=== PATIENT | female | born 1960 | race Caucasian/White ===

== ENCOUNTER 2017-02-08 20:19 | Emergency (ER) | payer OTHER ==
[2017-02-08 20:35] VITALS: BP 154/90; PULSE 90; TEMP 97.7; BMI 23.3
--- NOTE | 2017-02-08 20:48 | PDOC ---
History of Present Illness - General History Source: Patient Exam Limitations: No Limitations - History of Present Illness Initial Comments: 02/08/17 20:49 The patient is a 56 year old female, with a significant past medical history of , who presents to the emergency department with cough, chest congestion, and difficulty breathing, since today. The patient reports having chest congestion today casing the patient to have difficulty breathing. She also notes having one episode of vomiting, with alleviation of her symptoms. She notes having a partial nebulizer treatment with some alleviation of her symptoms. She also arrives with chief complaints of migraine headaches that has been intermittent for the past week .She denies recent fevers, chills, or dizziness. She denies recent diarrhea or constipation. Allergies: NKA Past surgical history: None reported. Social history: Nonsmoker. Denies EtOH use and recreational drug use. <Leroy Brown - Last Filed: 02/08/17 20:49> <Ivette Russell - Last Filed: 02/08/17 21:38> - General Chief Complaint: Respiratory Stated Complaint: DRY COUGH, HEADACHE Time Seen by Provider: 02/08/17 20:22 Past History <Leroy Brown - Last Filed: 02/08/17 20:49> - Past Medical History Other medical history: POLYCYTHEMIA - Psycho/Social/Smoking Cessation Hx Anxiety: No Suicidal Ideation: No Smoking History: Never smoked Have you smoked in the past 12 months: No Information on smoking cessation initiated: No Hx Alcohol Use: No Drug/Substance Use Hx: No Substance Use Type: None <Ivette Russell - Last Filed: 02/08/17 21:38> - Past Medical History Allergies/Adverse Reactions: Allergies Allergy/AdvReac Type Severity Reaction Status Date / Time No Known Allergies Allergy Verified 02/08/17 20:20 Home Medications: Ambulatory Orders Azithromycin [Zithromax 250mg Tablets -] 250 mg PO UTDICT #6 tab 02/08/17 Ruxolitinib Phosphate [Jakafi] 10 mg PO BID 02/08/17 Review of Systems - Review of Systems Able to Perform ROS?: Yes Comments:: 02/08/17 20:49 GENERAL/CONSTITUTIONAL: No fever or chills. No weakness. HEAD, EYES, EARS, NOSE AND THROAT: No change in vision. No ear pain or discharge. No sore throat. CARDIOVASCULAR: +SOB RESPIRATORY: +cough No wheezing, or hemoptysis. GASTROINTESTINAL:+vomiting. No diarrhea or constipation. GENITOURINARY: No dysuria, frequency, or change in urination. MUSCULOSKELETAL: No joint or muscle swelling or pain. No neck or back pain. SKIN: No rash NEUROLOGIC: +headache. No vertigo, loss of consciousness, or change in strength/ sensation. ENDOCRINE: No increased thirst. No abnormal weight change. HEMATOLOGIC/LYMPHATIC: No anemia, easy bleeding, or history of blood clots. ALLERGIC/IMMUNOLOGIC: No hives or skin allergy. <Leroy Brown - Last Filed: 02/08/17 20:49> *Physical Exam - Vital Signs Last Vital Signs Temp Pulse Resp BP Pulse Ox 97.7 F 90 18 154/90 100 02/08/17 20:24 02/08/17 20:24 02/08/17 20:24 02/08/17 20:24 02/08/17 20:24 - Physical Exam Comments: 02/08/17 20:50 GENERAL: Awake, alert, and fully oriented, in no acute distress HEAD: No signs of trauma EYES: PERRLA, EOMI, sclera anicteric, conjunctiva clear ENT: TMs clear effusions bilaterally. Nose boggy turbinates bilaterally. oropharynx clear without exudates. Moist mucosa NECK: Normal ROM, supple, no lymphadenopathy, JVD, or masses LUNGS: Breath sounds equal, clear to auscultation bilaterally. No wheezes, and no crackles HEART: Regular rate and rhythm, normal S1 and S2, no murmurs, rubs or gallops ABDOMEN: Soft, nontender, normoactive bowel sounds. No guarding, no rebound. No masses EXTREMITIES: Normal range of motion, no edema. No clubbing or cyanosis. No cords, erythema, or tenderness NEUROLOGICAL: Cranial nerves II through XII grossly intact. Normal speech, normal gait SKIN: Warm, Dry, normal turgor, no rashes or lesions noted. <Leroy Brown - Last Filed: 02/08/17 20:49> - Vital Signs Last Vital Signs Temp Pulse Resp BP Pulse Ox 97.7 F 90 18 154/90 100 02/08/17 20:24 02/08/17 20:24 02/08/17 20:24 02/08/17 20:24 02/08/17 20:24 <Ivette Russell - Last Filed: 02/08/17 21:38> Medical Decision Making - Medical Decision Making Based on exam findings, I suspect there is an allergic component causing postnasal drip and mucous plug. She had an episode of coughing after using a neb treatment for 2 minutes. Lungs are clear now, no cough. I recommended treating for allergies, as this seems to be at the root. If needed, she will use neb treatments- I counseled her that it is normal to cough during treatments as it opens up the airways, but that she should finish the entire treatment in the future. Will treat with nasal steroids and OTC Shahrzad. If the cough worsens or becomes productive, will start an antibiotic, although she does not need it at this time. She and family are ok with this plan. <Ivette Russell - Last Filed: 02/08/17 21:38> *DC/Admit/Observation/Transfer - Attestations Scribe Attestion: 02/08/17 20:50 Documentation prepared by Leroy Brown, acting as medical reviewer for Ivette Russell MD. <Leroy Brown - Last Filed: 02/08/17 20:49> - Discharge Dispostion Admit: No <Ivette Russell - Last Filed: 02/08/17 21:38> Diagnosis at time of Disposition: Cough Allergic rhinitis Qualifiers: Chronicity: unspecified Allergic rhinitis trigger: unspecified Allergic rhinitis seasonality: seasonal Qualified Code(s): J30.2 - Other seasonal allergic rhinitis - Discharge Dispostion Disposition: HOME Condition at time of disposition: Stable - Prescriptions Prescriptions: Azithromycin [Zithromax 250mg Tablets -] 250 mg PO UTDICT #6 tab - Patient Instructions Printed Discharge Instructions: DI for Acute Bronchitis, DI for Allergic Rhinitis Additional Instructions: NASACORT 2 SPRAYS EACH NOSTRIL DAILY, USE EVERY DAY OTHERWISE IT WILL NOT WORK. SHAHRZAD- TAKE ONE TAB BY MOUTH EVERY DAY NEEDED FOR SYMPTOMS. AZITHROMYCIN- ONLY FILL THIS PRESCRIPTION IF THE COUGH WORSENS OR BECOMES PRODUCTIVE.
== END 2017-02-08 21:27 | disposition home or self-care (01) ==
LOC: FER 20:19
DX: J30.2 Other seasonal allergic rhinitis (principal); D75.1 Secondary polycythemia
CPT/HCPCS: 71020-TC; 99281-25

== ENCOUNTER 2018-06-01 18:11 | Inpatient (IN) | payer OTHER ==
--- NOTE | 2018-06-01 18:19 | PDOC ---
History of Present Illness - General Chief Complaint: Urinary Problem Stated Complaint: BURNING ON URINATION Time Seen by Provider: 06/01/18 18:13 - History of Present Illness Initial Comments: The patient is a 57F with a history of myelofibrosis (Jakafi and an "study medication") and splenomegaly presents for evaluation of dysuria for 2 days. The patient endorses associated frequency. She endorses 1d of fevers (Tm 100 at homes), chills, malaise, in left sided abdominal pain. Pain in achy/pressure which does not radiate, is worse with movement/palpation, and is better with recumbency. +N and emesis x1 yesterday. The patient reports chronic abdominal pain 2/2 her splenomegaly. The patient states she will generally have abdominal pain/pressure as well as difficultly taking deep breaths 2/2 her splenomegaly. Denies chest pain, diarrhea, AVILES, vision changes, or changes in sensation She is on Bactrim MWF for infectious ppx Oncologist: Dr. Aleena Treviño 06/01/18 18:17 Past History - Past Medical History Allergies/Adverse Reactions: Allergies Allergy/AdvReac Type Severity Reaction Status Date / Time No Known Allergies Allergy Verified 06/01/18 18:12 Home Medications: Ambulatory Orders Ruxolitinib Phosphate [Jakafi] 10 mg PO BID 02/08/17 Sulfamethoxazole/Trimethoprim [Bactrim Ds -] 1 tab PO ASDIR 06/01/18 - Suicide/Smoking/Psychosocial Hx Smoking History: Never smoked Have you smoked in the past 12 months: No Hx Alcohol Use: No Drug/Substance Use Hx: No Substance Use Type: None Review of Systems - Review of Systems Able to Perform ROS?: Yes Comments:: GENERAL/CONSTITUTIONAL: +fever, chills, malaise HEAD, EYES, EARS, NOSE AND THROAT: No change in vision. No ear pain or discharge. No sore throat CARDIOVASCULAR: No chest pain RESPIRATORY: No cough, wheezing, or hemoptysis GASTROINTESTINAL: +N, Vx1 yesterday; denies diarrhea or constipation GENITOURINARY: per HPI MUSCULOSKELETAL: No joint or muscle swelling or pain. No neck or back pain SKIN: No rash NEUROLOGIC: No vertigo, loss of consciousness, or change in strength/sensation ENDOCRINE: No increased thirst. No abnormal weight change HEMATOLOGIC/LYMPHATIC: +myelofibrosis ALLERGIC/IMMUNOLOGIC: No hives or skin allergy 06/01/18 18:17 Is the patient limited Wolof proficient: No *Physical Exam - Physical Exam Comments: GENERAL: Awake, alert, and fully oriented, appears tired HEAD: No signs of trauma, normocephalic, atraumatic EYES: PERRL, EOMI, sclera anicteric, conjunctiva clear ENT: Hearing grossly normal, nares patent, oropharynx clear without exudates. Moist mucosa NECK: Normal ROM, supple LUNGS: No distress, speaks full sentences, clear to auscultation bilaterally HEART: Tachycardic w/ regular rhythm, peripheral pulses normal and equal bilaterally ABDOMEN: Soft, epigastric and left flank TTP without rebound or guarding, not distended, normoactive bowel sounds. +splenomegaly. No CVA TTP EXTREMITIES : Normal inspection, Normal range of motion, no edema. No clubbing or cyanosis NEUROLOGICAL: Cranial nerves II through XII grossly intact. Normal speech, no focal sensorimotor deficits SKIN: Warm, Dry 06/01/18 18:17 ED Treatment Course - LABORATORY CBC & Chemistry Diagram: 06/01/18 18:40 06/01/18 18:40 Medical Decision Making - Medical Decision Making The patient is a 57F with myelofibrosis (Jakafi and an experimental Rx) who presents with 2 days of dysuria with fevers/chills and left abdominal flank pain Oncologist: Dr. Aleena Treviño Ddx: UTI/pyelonephritis/sepsis, bacteremia, considered PNA ED Course Sepsis w/u Ofirmev 1g IV once NS 1L IV once Vanc 1g IV once Zosyn 3.375g Labs pending Plan for admission for IV abx and resuscitation T 101.3 rectally Patient signed out to Dr. Prakash, all relevant history, care, and plan discussed and all questions answered. 06/01/18 18:47 *DC/Admit/Observation/Transfer Diagnosis at time of Disposition: Myelofibrosis Urinary tract infection Qualifiers: Urinary tract infection type: acute cystitis Hematuria presence: without hematuria Qualified Code(s): N30.00 - Acute cystitis without hematuria Sepsis Qualifiers: Sepsis type: sepsis due to unspecified organism Qualified Code(s): A41.9 - Sepsis, unspecified organism - Discharge Dispostion Condition at time of disposition: Guarded Decision to Admit order: Yes - Referrals - Patient Instructions - Post Discharge Activity
[2018-06-01 18:24] LABS: URINE BILIRUBIN Negative (NEGATIVE); URINE COLOR Yellow; URINE GLUCOSE (UA) Negative (NEGATIVE); URINE KETONE Negative (NEGATIVE); URINE NITRITE Positive (NEGATIVE); URINE UROBILINOGEN 0.2 (0.2-1.0)
[2018-06-01 18:28] LABS: URINE APPEARANCE CLOUDY; URINE LEUK ESTERASE 2+ (NEGATIVE); URINE PROTEIN 2+ (NEGATIVE)
[2018-06-01 18:31] LABS: URINE WBC >100 (0-5)
[2018-06-01 18:32] LABS: URINE BACTERIA MANY /hpf (NEGATIVE)
[2018-06-01] MEDS ORDERED: ACETAMINOPHEN 1000 MG/100 ML VIAL (NON FORMULARY) IVPB ONE (18:34)
[2018-06-01] MEDS ORDERED: ACETAMINOPHEN INJECTION 100 ML IVPB ONE (18:42)
[2018-06-01] MEDS ORDERED: PIPERACILLIN/TAZOB 3.375 GM 3.375 GM in DEXTROSE 5%-WATER - 50 ML IVPB ONE (18:43)
[2018-06-01] MEDS ORDERED: VANCOMYCIN 1,000 MG in DEXTROSE 5%-WATER - 250 ML IVPB ONE (18:43)
[2018-06-01] MEDS ORDERED: SODIUM CHLORIDE 0.9% 500 ML INFUS.BAG IV ONE (18:46)
[2018-06-01] MEDS ORDERED: PIPERACILLIN/TAZOBACTAM 3.375 GM VIAL IVPB ONE (18:46)
[2018-06-01 18:51] VITALS: BMI 19.8
[2018-06-01 18:55] LABS: RDW 19.6 % (11.6-15.6)
[2018-06-01 18:58] LABS: HEMATOCRIT 29.1 % (32.4-45.2); HEMOGLOBIN 9.6 GM/dl (10.7-15.3); MCH 21.6 pg (25.7-33.7); MCHC 32.9 g/dl (32.0-36.0); MEAN CELL VOLUME 65.7 fl (80-96); MEAN PLT VOLUME 8.5 fl (7.5-11.1); PLATELET COUNT 102 K/MM3 (134-434); RBC 4.43 M/mm3 (3.60-5.2)
[2018-06-01] MEDS ORDERED: VANCOMYCIN 1,000 MG VIAL (RESTRICTED TO ID ONLY) ONE (18:58)
[2018-06-01 19:03] LABS: ACTIVATED PTT 33.9 SECONDS (25.2-36.5)
--- NOTE | 2018-06-01 19:04 | PDOC ---
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 Patient has been on prophylactic doses of Bactrim since being on a study therapy, reports compliance but developed symptoms anyway. No other GI complaints other than nausea/vomiting over the last few weeks, no diarrhea, no chest pain. The suprapubic discomfort radiates to her lower back, denies any flank pain. - Physicial Exam PE: 06/01/18 19:01 Rectal fever of 101.3, heart rate 100, O2 sat within normal limits Thin, chronically ill No jaundice or pallor Heart is regular slight tachycardia, lungs are clear Baseline splenomegaly, no guarding or rebound, questionable right CVA tenderness - Critical Care Time Total Critical Care Time: 45 Critical Care Statement: The care of this patient involved high complexity decision making to prevent further life threatening deterioration of the patient 's condition and/or to evaluate & treat vital organ system(s) failure or risk of failure. - Medical Decision Making 06/01/18 19:03 57-year-old female with myelofibrosis on immunomodulators presents with UTI symptoms for 3 days and now findings consistent with sepsis. sepsis protocol initiated cover with broad spectrum abx tylenol for fever/pain, iv fluids resuscitation admission
[2018-06-01 19:07] LABS: ALBUMIN 3.3 g/dl (3.5-5.0); ALK PHOS 87 U/L (32-92); ANION GAP 9 MMOL/L (8-16); BILIRUBIN,TOTAL 1.1 mg/dl (0.2-1.0); BLOOD UREA NITROGEN 20 mg/dl (7-18); CALCIUM 7.9 mg/dl (8.4-10.2); CHLORIDE 99 mmol/L (98-107); CO2 23 mmol/L (22-28); CREATININE 0.9 mg/dl (0.6-1.3); GLUCOSE,RANDOM 109 mg/dl (74-106); POTASSIUM 3.9 mmol/L (3.5-5.1); SGOT/AST 18 U/L (10-42); SGPT/ALT 9 U/L (10-40); SODIUM 131 mmol/L (136-145); TOT PROT 6.3 g/dl (6.4-8.3)
[2018-06-01 19:08] LABS: INR 1.63 (0.82-1.09); PROTHROMBIN TIME (PATIENT) 18.1 SEC (10.2-13.0)
[2018-06-01 20:14] LABS: ANISOCYTOSIS 2+
[2018-06-01 20:17] LABS: PLATELET ESTIMATE DECREASED
[2018-06-01 20:24] LABS: VENOUS PC02 32.6 mmHg (38-52); VENOUS PH 7.49 (7.32-7.42); VENOUS PO2 23.1 mmHg (28-48)
--- NOTE | 2018-06-01 20:34 | PDOC ---
*Physical Exam - Vital Signs Last Vital Signs Temp Pulse Resp BP Pulse Ox 99.5 F 95 H 16 108/65 98 06/01/18 19:56 06/01/18 20:24 06/01/18 19:56 06/01/18 20:24 06/01/18 20:24 ED Treatment Course - LABORATORY CBC & Chemistry Diagram: 06/01/18 18:40 06/01/18 18:40 - ADDITIONAL ORDERS Additional order review: Laboratory Results 06/01/18 06/01/18 06/01/18 18:40 18:40 18:40 PT with INR INR PTT (Actin FS) VBG pH POC VBG pCO2 POC VBG pO2 Mixed VBG HCO3 Sodium Potassium Chloride Carbon Dioxide Anion Gap BUN Creatinine Creat Clearance w eGFR Random Glucose Lactic Acid Cancelled 1.2 Calcium Total Bilirubin AST ALT Alkaline Phosphatase Troponin I < 0.03 Total Protein Albumin Urine Color Urine Appearance Urine pH Ur Specific Ismay Urine Protein Urine Glucose (UA) Urine Ketones Urine Blood Urine Nitrite Urine Bilirubin Urine Urobilinogen Ur Leukocyte Esterase Urine RBC Urine WBC Urine Bacteria 06/01/18 06/01/18 06/01/18 18:40 18:40 18:40 PT with INR 18.1 H INR 1.63 H PTT (Actin FS) 33.9 VBG pH 7.49 H POC VBG pCO2 32.6 L POC VBG pO2 23.1 L Mixed VBG HCO3 24.4 Sodium 131 L Potassium 3.9 Chloride 99 Carbon Dioxide 23 Anion Gap 9 BUN 20 H Creatinine 0.9 Creat Clearance w eGFR > 60 Random Glucose 109 H Lactic Acid Calcium 7.9 L Total Bilirubin 1.1 H AST 18 ALT 9 L Alkaline Phosphatase 87 Troponin I Total Protein 6.3 L Albumin 3.3 L Urine Color Urine Appearance Urine pH Ur Specific Ismay Urine Protein Urine Glucose (UA) Urine Ketones Urine Blood Urine Nitrite Urine Bilirubin Urine Urobilinogen Ur Leukocyte Esterase Urine RBC Urine WBC Urine Bacteria 06/01/18 18:20 PT with INR INR PTT (Actin FS) VBG pH POC VBG pCO2 POC VBG pO2 Mixed VBG HCO3 Sodium Potassium Chloride Carbon Dioxide Anion Gap BUN Creatinine Creat Clearance w eGFR Random Glucose Lactic Acid Calcium Total Bilirubin AST ALT Alkaline Phosphatase Troponin I Total Protein Albumin Urine Color Yellow Urine Appearance Cloudy Urine pH 6.0 Ur Specific Ismay 1.015 Urine Protein 2+ H Urine Glucose (UA) Negative Urine Ketones Negative Urine Blood Trace-intact H Urine Nitrite Positive Urine Bilirubin Negative Urine Urobilinogen 0.2 Ur Leukocyte Esterase 2+ H Urine RBC 5-10 Urine WBC >100 Urine Bacteria Many 06/01/18 18:40 RBC 4.43 MCV 65.7 L MCHC 32.9 RDW 19.6 H MPV 8.5 Neutrophils % No Result Required. Lymphocytes % No Result Required. - Medications Given in the ED: ED Medications Discontinued Medications Generic Name Dose Route Start Last Admin Trade Name Jae PRN Reason Stop Dose Admin Acetaminophen 1,000 mg 06/01/18 18:34 06/01/18 18:45 Ofirmev Injection - IVPB 06/01/18 18:35 1,000 mg ONCE ONE Administration Vancomycin HCl 1,000 mg/ 250 mls @ 166.667 mls/hr 06/01/18 18:43 06/01/18 19: 41 Dextrose IVPB 06/01/18 20:12 166.667 mls/hr ONCE ONE Administration Protocol Piperacillin Sod/Tazobactam 50 mls @ 100 mls/hr 06/01/18 18:43 06/01/18 19:01 Sod 3.375 gm/ Dextrose IVPB 06/01/18 19:12 100 mls/hr ONCE ONE Administration Protocol Sodium Chloride 1,000 ml 06/01/18 18:46 06/01/18 19:01 Normal Saline - IV 06/01/18 18:47 1,000 ml ONCE ONE Administration Progress Note - Progress Note Progress Note: Care of this patient was transferred to ri from Dr. Torres at 1900 hrs. Patient was seen by the certified medical records coder in addition to the attending Dr. Hoover. Patient has a history significant for being immunocompromised secondary to myelofibrosis with immunotherapy. Patient comes in with fever and foul-smelling urine and some left flank pain. A workup was initiated by Dr. Hoover and results are pending. 20:30 Patient's white count is markedly elevated at 18,000 with a left shift, patient was given vancomycin and Zosyn, patient's blood pressure did drop to 85 /65 however she was given 2 L of fluid with response of blood pressure 108 systolic. Patient is lactic acid was 1.2 within normal range. It was initially discussed that the patient may need to go to the ICU because of her drop in blood pressure however with a normal lactic acid and a blood pressure that responded to fluids it was felt that in discussion with the rn intake patient would be okay to stay at [facility]. Hospitalist was notified Dr. Khanna who will admit the patient. To a medical bed. *DC/Admit/Observation/Transfer Diagnosis at time of Disposition: Myelofibrosis Urinary tract infection Qualifiers: Urinary tract infection type: acute cystitis Hematuria presence: without hematuria Qualified Code(s): N30.00 - Acute cystitis without hematuria Sepsis Qualifiers: Sepsis type: sepsis due to unspecified organism Qualified Code(s): A41.9 - Sepsis, unspecified organism - Discharge Dispostion Condition at time of disposition: Guarded Decision to Admit order: Yes - Referrals - Patient Instructions - Post Discharge Activity
--- NOTE | 2018-06-02 00:43 | HP ---
CHIEF COMPLAINT: fever, chills PCP: Oncologist: Dr. Aleena Treviño at [facility] HISTORY OF PRESENT ILLNESS: This is a 57 year old female with a past medical history of myelofibrosis with splenomegaly who presented to the ED with fever, chills, malaise today, dysuria since Tuesday and nausea and vomiting x 3 weeks. Pt reports chronic abdominal pain secondary to splenomegaly. Pt is involved in a research study for myelofibrosis and is on a research drug that is a phosphoinositide-3 kinase inhibitor. The study is at [facility] in the [place]. ER course was notable for: (1) WBC 18.0 (2) U/A c/w UTI (3) Lactic acid 1.2 Recent Travel: pt denies PAST MEDICAL HISTORY: myelofibrosis with splenomegaly PAST SURGICAL HISTORY: pt denies Social History: Smoking: pt denies Alcohol: pt denies Drugs: pt denies Family History: mother age 80, liver disease father alive and well, no medical problems 2 brothers and one sister alive and well, no medical problems 2 children alive and well, no medical problems Allergies No Known Allergies Allergy (Verified 06/01/18 18:12) HOME MEDICATIONS: 3 Medication Instructions Recorded Ruxolitinib Phosphate [Jakafi] 10 mg PO BID 02/08/17 Sulfamethoxazole/Trimethoprim 1 tab PO ASDIR 06/01/18 [Bactrim Ds -] Study Drug [id number] 5 mg PO DAILY (phosphoinositide-3 kinase inhibitor) REVIEW OF SYSTEMS CONSTITUTIONAL: Present: fever, chills, malaise Absent: diaphoresis, generalized weakness, loss of appetite, weight change HEENT: Absent: rhinorrhea, nasal congestion, throat pain, throat swelling, difficulty swallowing, mouth swelling, ear pain, eye pain, visual changes CARDIOVASCULAR: Absent: chest pain, syncope, palpitations, irregular heart rate, lightheadedness , peripheral edema RESPIRATORY: Absent: cough, shortness of breath, dyspnea with exertion, orthopnea, wheezing, stridor, hemoptysis GASTROINTESTINAL: Absent: abdominal pain, abdominal distension, nausea, vomiting, diarrhea, constipation, melena, hematochezia GENITOURINARY: Present: dysuria, frequency, urgency Absent: hesitancy, hematuria, flank pain, genital pain MUSCULOSKELETAL: Absent: myalgia, arthralgia, joint swelling, back pain, neck pain SKIN: Absent: rash, itching, pallor HEMATOLOGIC/IMMUNOLOGIC: Absent: easy bleeding, easy bruising, lymphadenopathy, frequent infections ENDOCRINE: Absent: unexplained weight gain, unexplained weight loss, heat intolerance, cold intolerance NEUROLOGIC: Absent: headache, focal weakness or paresthesias, dizziness, unsteady gait, seizure, mental status changes, bladder or bowel incontinence PSYCHIATRIC: Absent: anxiety, depression, suicidal or homicidal ideation, hallucinations. PHYSICAL EXAMINATION Vital Signs - 24 hr 3 06/01/18 06/01/18 06/01/18 18:12 18:46 19:56 Temperature 99.8 F H 101.3 F H 99.5 F Pulse Rate 108 H Pulse Rate [ 94 H Radial] Respiratory 18 16 Rate Blood Pressure 118/79 Blood Pressure 95/58 L [Arm] O2 Sat by Pulse 100 98 Oximetry (%) 06/01/18 06/01/18 06/01/18 20:24 20:44 21:30 Temperature 98.6 F Pulse Rate 86 Pulse Rate [ 95 H 86 Radial] Respiratory 18 Rate Blood Pressure 119/66 Blood Pressure 108/65 108/67 [Arm] O2 Sat by Pulse 98 98 98 Oximetry (%) 06/01/18 22:42 Temperature 98.6 F Pulse Rate 86 Pulse Rate [ Radial] Respiratory 18 Rate Blood Pressure 119/66 Blood Pressure [Arm] O2 Sat by Pulse 98 Oximetry (%) GENERAL: Awake, alert, and fully oriented, in no acute distress. HEAD: Normal with no signs of trauma. EYES: Pupils equal, round and reactive to light, extraocular movements intact, sclera anicteric, conjunctiva clear. No lid lag. EARS, NOSE, THROAT: Ears normal, nares patent, oropharynx clear without exudates. Moist mucous membranes. NECK: Normal range of motion, supple without lymphadenopathy, JVD, or masses. LUNGS: Breath sounds equal, clear to auscultation bilaterally. No wheezes, and no crackles. No accessory muscle use. HEART: Regular rate and rhythm, normal S1 and S2 without murmur, rub or gallop. ABDOMEN: Soft, nontender, not distended, normoactive bowel sounds, no guarding, no rebound, no masses. No hepatomegaly. massive splenomegaly MUSCULOSKELETAL: Normal range of motion at all joints. No bony deformities or tenderness. No CVA tenderness. UPPER EXTREMITIES: 2+ pulses, warm, well-perfused. No cyanosis. No clubbing. No peripheral edema. LOWER EXTREMITIES: 2+ pulses, warm, well-perfused. No calf tenderness. No peripheral edema. NEUROLOGICAL: Cranial nerves II-XII intact. Normal speech. Normal gait. PSYCHIATRIC: Cooperative. Good eye contact. Appropriate mood and affect. SKIN: Warm, dry, normal turgor, no rashes or lesions noted, normal capillary refill. Laboratory Results - last 24 hr 3 06/01/18 06/01/18 06/01/18 18:20 18:40 18:40 WBC 18.0 H RBC 4.43 Hgb 9.6 L Hct 29.1 L MCV 65.7 L MCH 21.6 L MCHC 32.9 RDW 19.6 H Plt Count 102 L MPV 8.5 Absolute Neuts (auto) 2.2 Neutrophils % No Result Required. Neutrophils % (Manual) 13.0 L Band Neutrophils % 2.0 Lymphocytes % No Result Required. Lymphocytes % (Manual) 44.0 H Monocytes % (Manual) 29 H* Eosinophils % (Manual) 2.0 Myelocytes % (Man) 5 H Blast Cells % (Manual) 0 Nucleated RBC % [employer] Metamyelocytes 3 H Differential Comment Make another slide Hypochromia 2+ Platelet Estimate Decreased Anisocytosis 2+ Microcytosis 2+ PT with INR 18.1 H INR 1.63 H PTT (Actin FS) 33.9 VBG pH POC VBG pCO2 POC VBG pO2 Mixed VBG HCO3 Sodium Potassium Chloride Carbon Dioxide Anion Gap BUN Creatinine Creat Clearance w eGFR Random Glucose Lactic Acid Calcium Total Bilirubin AST ALT Alkaline Phosphatase Troponin I Total Protein Albumin Urine Color Yellow Urine Appearance Cloudy Urine pH 6.0 Ur Specific [place] 1.015 Urine Protein 2+ H Urine Glucose (UA) Negative Urine Ketones Negative Urine Blood Trace-intact H Urine Nitrite Positive Urine Bilirubin Negative Urine Urobilinogen 0.2 Ur Leukocyte Esterase 2+ H Urine RBC 5-10 Urine WBC >100 Urine Bacteria Many Blood Type Antibody Screen 3 06/01/18 06/01/18 06/01/18 18:40 18:40 18:40 WBC RBC Hgb Hct MCV MCH MCHC RDW Plt Count MPV Absolute Neuts (auto) Neutrophils % Neutrophils % (Manual) Band Neutrophils % Lymphocytes % Lymphocytes % (Manual) Monocytes % (Manual) Eosinophils % (Manual) Myelocytes % (Man) Blast Cells % (Manual) Nucleated RBC % Metamyelocytes Differential Comment Hypochromia Platelet Estimate Anisocytosis Microcytosis PT with INR INR PTT (Actin FS) VBG pH 7.49 H POC VBG pCO2 32.6 L POC VBG pO2 23.1 L Mixed VBG HCO3 24.4 Sodium 131 L Potassium 3.9 Chloride 99 Carbon Dioxide 23 Anion Gap 9 BUN 20 H Creatinine 0.9 Creat Clearance w eGFR > 60 Random Glucose 109 H Lactic Acid 1.2 Calcium 7.9 L Total Bilirubin 1.1 H AST 18 ALT 9 L Alkaline Phosphatase 87 Troponin I < 0.03 Total Protein 6.3 L Albumin 3.3 L Urine Color Urine Appearance Urine pH Ur Specific [place] Urine Protein Urine Glucose (UA) Urine Ketones Urine Blood Urine Nitrite Urine Bilirubin Urine Urobilinogen Ur Leukocyte Esterase Urine RBC Urine WBC Urine Bacteria Blood Type Negative Antibody Screen B POSITIVE ECG Sinus rhythm with PAC vent rate 90, QTC 430 TWI lead III, V2 Inverted P waves lead v1 &v2 Radiology Reports Impression: No significant interval change or acute cardiopulmonary disease is present Reported By: Krystin Vazquez MD 06/01/182005 ASSESSMENT/PLAN: 57yF with PMH myelofibrosis, splenomegaly presented to the ED with fever, chills , malaise, dysuria, frequency, N/V. sepsis secondary to UTI - given vanc and zosyn, cont zosyn - ID consult - Received 1L NS in ED - would continue home Jakafi despite infection risk as mult possible Adverse events with abrupt DC myelofibrosis - would continue home Jakafi despite infection risk as mult possible Adverse events with abrupt DC - call private oncologist in AM and discuss study medication and his recommendations. DVT PPX - heparin sc FEN - tolerating po - BMP in am - regular diet as tolerated dispo: Pt currently requires further inpatient management of her emergent condition. Visit type - Emergency Visit Emergency Visit: Yes ED Registration Date: 06/01/18 Care time: The patient presented to the Emergency Department on the above date and was hospitalized for further evaluation of their emergent condition. - New Patient This patient is new to me today: Yes Date on this admission: 06/02/18 - Critical Care Critical Care patient: No Hospitalist Screening - Colonoscopy Questionnaire Colonoscopy Questionnaire: Colonoscopy Questionnaire - Patient: 50 - 75 years old and never had a screening colonoscopy: No History of colon or rectal polyps, or CA: No History of IBD, Crohn's disease or UC: No History of abdominal radiation therapy as a child: No - Relative: 1 with colon or rectal CA, or polyps at age 60 or younger: No Colon or rectal CA diagnosed at age 45 or younger: No Multiple relatives with colon or rectal CA: No - Outcome: Screening Result: Negative Screen
[2018-06-02] MEDS ORDERED: PIPERACILLIN/TAZOB 3.375 GM 3.375 GM/50 ML BAG IVPB ONE (01:00)
[2018-06-02 08:16] LABS: BASO % 0.2 % (0-2.0); EOS % 0.5 % (0-4.5); HEMATOCRIT 24.6 % (32.4-45.2); HEMOGLOBIN 7.9 GM/dl (10.7-15.3); LYMPH % 27.1 % (8-40); MCH 21.4 pg (25.7-33.7); MCHC 32.2 g/dl (32.0-36.0); MEAN CELL VOLUME 66.4 fl (80-96); MEAN PLT VOLUME 7.6 fl (7.5-11.1); MONO % 61.1 % (3.8-10.2); NEUT % 11.1 % (42.8-82.8); PLATELET COUNT 65 K/MM3 (134-434); RDW 19.9 % (11.6-15.6); WHITE BLOOD COUNT 9.6 K/mm3 (4.0-10.8)
[2018-06-02 08:34] LABS: ANION GAP 7 MMOL/L (8-16); BLOOD UREA NITROGEN 15 mg/dl (7-18); CALCIUM 7.4 mg/dl (8.4-10.2); CHLORIDE 104 mmol/L (98-107); CO2 23 mmol/L (22-28); CREATININE 0.8 mg/dl (0.6-1.3); GLUCOSE,RANDOM 93 mg/dl (74-106); MAGNESIUM 1.8 mg/dL (1.8-2.4); PHOSPHOROUS 2.9 mg/dl (2.5-4.6); POTASSIUM 3.4 mmol/L (3.5-5.1); SODIUM 134 mmol/L (136-145)
--- NOTE | 2018-06-02 08:49 | PN ---
Physical Exam: SUBJECTIVE: Patient seen and examined, reports feeling better more energy, reports tactile fever. OBJECTIVE:Patient is a 57-year-old female with a past medical history of myelofibrosis With significant splenomegaly, Patient is currently being followed by [facility] oncology, Dr. Aleena Treviño at [facility] , She is currently involved in a research study for myelofibrosis and is on a research drug that is a phosphoinositide-3 kinase inhibitor The patient was medically emergency department for sepsis secondary to urinary tract infection. Vital Signs Period Temp Pulse Resp BP Sys/Mcintyre Pulse Ox Last 24 Hr 98.6 F-101.3 F 86-108 16-18 95-119/50-79 98-100 GENERAL: The patient is awake, alert, and fully oriented, The patient appears cachectic HEAD: Temporal wasting with no signs of trauma. EYES: PERRL, extraocular movements intact, sclera anicteric, conjunctiva clear. No ptosis. ENT: Ears normal, nares patent, oropharynx clear without exudates, moist mucous membranes. NECK: Trachea midline, full range of motion, supple. LUNGS: Breath sounds equal, clear to auscultation bilaterally, no wheezes, no crackles, no accessory muscle use. HEART: Regular rate and rhythm, S1, S2 without murmur, rub or gallop. ABDOMEN: Soft, nontender, nondistended, normoactive bowel sounds, no guarding, no rebound, + splenomegaly, no masses. EXTREMITIES: 2+ pulses, warm, well-perfused, no edema. NEUROLOGICAL: Cranial nerves II through XII grossly intact. Normal speech, gait not observed. PSYCH: Normal mood, normal affect. SKIN: Warm, dry, normal turgor, no rashes or lesions noted Laboratory Results - last 24 hr 06/01/18 06/01/18 06/01/18 18:20 18:40 18:40 WBC 18.0 H RBC 4.43 Hgb 9.6 L Hct 29.1 L MCV 65.7 L MCH 21.6 L MCHC 32.9 RDW 19.6 H Plt Count 102 L MPV 8.5 Absolute Neuts (auto) 2.2 Neutrophils % No Result Required. Neutrophils % (Manual) 13.0 L Band Neutrophils % 2.0 Lymphocytes % No Result Required. Lymphocytes % (Manual) 44.0 H Monocytes % Monocytes % (Manual) 29 H* Eosinophils % Eosinophils % (Manual) 2.0 Basophils % Myelocytes % (Man) 5 H Blast Cells % (Manual) 0 Nucleated RBC % [employer] Metamyelocytes 3 H Differential Comment Make another slide Hypochromia 2+ Platelet Estimate Decreased Anisocytosis 2+ Microcytosis 2+ PT with INR 18.1 H INR 1.63 H PTT (Actin FS) 33.9 VBG pH POC VBG pCO2 POC VBG pO2 Mixed VBG HCO3 Sodium Potassium Chloride Carbon Dioxide Anion Gap BUN Creatinine Creat Clearance w eGFR Random Glucose Lactic Acid Calcium Phosphorus Magnesium Total Bilirubin AST ALT Alkaline Phosphatase Troponin I Total Protein Albumin Urine Color Yellow Urine Appearance Cloudy Urine pH 6.0 Ur Specific [place] 1.015 Urine Protein 2+ H Urine Glucose (UA) Negative Urine Ketones Negative Urine Blood Trace-intact H Urine Nitrite Positive Urine Bilirubin Negative Urine Urobilinogen 0.2 Ur Leukocyte Esterase 2+ H Urine RBC 5-10 Urine WBC >100 Urine Bacteria Many Blood Type Antibody Screen 06/01/18 06/01/18 06/01/18 18:40 18:40 18:40 WBC RBC Hgb Hct MCV MCH MCHC RDW Plt Count MPV Absolute Neuts (auto) Neutrophils % Neutrophils % (Manual) Band Neutrophils % Lymphocytes % Lymphocytes % (Manual) Monocytes % Monocytes % (Manual) Eosinophils % Eosinophils % (Manual) Basophils % Myelocytes % (Man) Blast Cells % (Manual) Nucleated RBC % Metamyelocytes Differential Comment Hypochromia Platelet Estimate Anisocytosis Microcytosis PT with INR INR PTT (Actin FS) VBG pH 7.49 H POC VBG pCO2 32.6 L POC VBG pO2 23.1 L Mixed VBG HCO3 24.4 Sodium 131 L Potassium 3.9 Chloride 99 Carbon Dioxide 23 Anion Gap 9 BUN 20 H Creatinine 0.9 Creat Clearance w eGFR > 60 Random Glucose 109 H Lactic Acid 1.2 Calcium 7.9 L Phosphorus Magnesium Total Bilirubin 1.1 H AST 18 ALT 9 L Alkaline Phosphatase 87 Troponin I Total Protein 6.3 L Albumin 3.3 L Urine Color Urine Appearance Urine pH Ur Specific [place] Urine Protein Urine Glucose (UA) Urine Ketones Urine Blood Urine Nitrite Urine Bilirubin Urine Urobilinogen Ur Leukocyte Esterase Urine RBC Urine WBC Urine Bacteria Blood Type Antibody Screen 06/01/18 06/01/18 06/01/18 18:40 18:40 18:50 WBC RBC Hgb Hct MCV MCH MCHC RDW Plt Count MPV Absolute Neuts (auto) Neutrophils % Neutrophils % (Manual) Band Neutrophils % Lymphocytes % Lymphocytes % (Manual) Monocytes % Monocytes % (Manual) Eosinophils % Eosinophils % (Manual) Basophils % Myelocytes % (Man) Blast Cells % (Manual) Nucleated RBC % Metamyelocytes Differential Comment Hypochromia Platelet Estimate Anisocytosis Microcytosis PT with INR INR PTT (Actin FS) VBG pH POC VBG pCO2 POC VBG pO2 Mixed VBG HCO3 Sodium Potassium Chloride Carbon Dioxide Anion Gap BUN Creatinine Creat Clearance w eGFR Random Glucose Lactic Acid Cancelled Calcium Phosphorus Magnesium Total Bilirubin AST ALT Alkaline Phosphatase Troponin I < 0.03 Total Protein Albumin Urine Color Urine Appearance Urine pH Ur Specific [place] Urine Protein Urine Glucose (UA) Urine Ketones Urine Blood Urine Nitrite Urine Bilirubin Urine Urobilinogen Ur Leukocyte Esterase Urine RBC Urine WBC Urine Bacteria Blood Type B POSITIVE Antibody Screen Negative 06/01/18 06/02/18 06/02/18 18:50 07:10 07:10 WBC 9.6 RBC 3.70 Hgb 7.9 L Hct 24.6 L D MCV 66.4 L MCH 21.4 L MCHC 32.2 RDW 19.9 H Plt Count 65 L MPV 7.6 Absolute Neuts (auto) 1.1 Neutrophils % 11.1 L Neutrophils % (Manual) Band Neutrophils % Lymphocytes % 27.1 Lymphocytes % (Manual) Monocytes % 61.1 H Monocytes % (Manual) Eosinophils % 0.5 Eosinophils % (Manual) Basophils % 0.2 Myelocytes % (Man) Blast Cells % (Manual) Nucleated RBC % Metamyelocytes Differential Comment Hypochromia Platelet Estimate Anisocytosis Microcytosis PT with INR INR PTT (Actin FS) VBG pH POC VBG pCO2 POC VBG pO2 Mixed VBG HCO3 Sodium 134 L Potassium 3.4 L Chloride 104 Carbon Dioxide 23 Anion Gap 7 L BUN 15 Creatinine 0.8 Creat Clearance w eGFR > 60 Random Glucose 93 Lactic Acid Calcium 7.4 L Phosphorus 2.9 Magnesium 1.8 Total Bilirubin AST ALT Alkaline Phosphatase Troponin I Total Protein Albumin Urine Color Urine Appearance Urine pH Ur Specific [place] Urine Protein Urine Glucose (UA) Urine Ketones Urine Blood Urine Nitrite Urine Bilirubin Urine Urobilinogen Ur Leukocyte Esterase Urine RBC Urine WBC Urine Bacteria Blood Type B POSITIVE Antibody Screen Active Medications Generic Name Dose Route Start Last Admin Trade Name Freq PRN Reason Stop Dose Admin Heparin Sodium (Porcine) 5,000 unit 06/02/18 10:00 06/02/18 09:36 Heparin - SQ 5,000 unit BID TRINI Administration Ceftriaxone Sodium 2 gm in 100 mls @ 200 mls/hr 06/02/18 10:45 06/02/18 11:33 Rocephin 2gm Ivpb (Pre-Docked) IVPB 200 mls/hr DAILY TRINI Administration Protocol Non-Formulary Medication 1 each 06/02/18 10:00 Patient's Own Med PO DAILY TRINI Non-Formulary Medication 5 mg 06/02/18 22:00 Ruxolitinib Phosphate [Jakafi] PO BID TRINI Trimethoprim/Sulfamethoxazole 1 each 06/02/18 10:00 06/02/18 09:35 Bactrim Ds - PO 1 each [id number] TRINI Administration Microbiology 06/01/18 18:40 Blood - Peripheral Venous Blood Culture - Preliminary Pending Organism ECG Sinus rhythm with PAC vent rate 90, QTC 430 TWI lead III, V2 Inverted P waves lead v1 &v2 Radiology Reports Impression: No significant interval change or acute cardiopulmonary disease is present Reported By: Krystin Vazquez MD 06/01/182005 ASSESSMENT/PLAN: 57yF with PMH myelofibrosis, splenomegaly presented to the ED with fever, chills , malaise, dysuria, frequency, N/V. 1) sepsis secondary to UTI - leukocytosis resolved, low-grade temperature noted, pending urine and blood cultures - prelim blood culture x 1, positive. - patient was given vanc and zosyn in the ED, will continue rocephin, day 1 - ID, Dr Conklin consulted and following 2) myelofibrosis - hemoglobin 7.9, maybe secondary to hemodilution, patient did receive 2 Liters of IVF, repeat hgb in AM - thrombocytopenia noted Discussion with oncologist Dr. Lucas recommends decreasing Jakafi to 5mg bid - pt will be evaluated by oncologist (Lance/Julio Cesar) today 3) malnutrition secondary to myelofibrosis - Patient reports decreased by mouth intake secondary to splenomegaly reports feeling full after eating, will consult dietary - Start ensure dietary and multivitamin DVT PPX - DC heparin secondary to thrombocytopenia mechanical AC only FEN - tolerating po - BMP in am - regular diet as tolerated dispo: Pt currently requires further inpatient management of her emergent condition. Visit type - Emergency Visit Emergency Visit: Yes ED Registration Date: 06/01/18 Care time: The patient presented to the Emergency Department on the above date and was hospitalized for further evaluation of their emergent condition. - New Patient This patient is new to me today: Yes Date on this admission: 05/26/18 - Critical Care Critical Care patient: No - Discharge Referral Referred to [facility] No
[2018-06-02] MEDS ORDERED: MAGNESIUM SULF 50% (8.12 MEQ/2 ML-1 GM VIAL) IVPB ONE (08:50)
[2018-06-02] MEDS ORDERED: POTASSIUM CHLORIDE TABS 20 MEQ TABLET.ER (FP) PO ONE (09:15)
[2018-06-02] MEDS ORDERED: MAGNESIUM 1GM/D5W - 1 GM/100 ML IVPB IVPB ONE (09:15)
[2018-06-02] MEDS: SULFAMETHOXAZOLE/TRIMETHOPRIM 800MG/160MG D.S. TABLET PO SCH (09:35)
[2018-06-02] MEDS ORDERED: HEPARIN NA (PORCINE) 5,000 UNITS/ML 1ML VIAL SQ SCH (10:00)
[2018-06-02] MEDS ORDERED: RUXOLITINIB PHOSPHATE 10 MG PO SCH (10:00)
--- NOTE | 2018-06-02 10:34 | PN ---
Progress Note (short form) - Note Progress Note: ID Consult dictated UTI/ Possible sepsis secondary to UTI R/O non-neutropenic sepsis Myelofibrosis on Jakafi Await c/s Empiric ceftriaxone Hold Jakafi
[2018-06-02] MEDS: CEFTRIAXONE 2 GM/100 ML BAG IVPB SCH (11:33)
--- NOTE | 2018-06-02 11:56 | CONS ---
DATE OF CONSULTATION: 06/02/2018 HISTORY OF PRESENT ILLNESS: The patient is a 57-year-old female with a history of myelofibrosis awaiting bone marrow transplant evaluated for urosepsis. The patient was admitted to the hospital on June 01, 2018. She reports a 2-day history of dysuria, urinary frequency, malodorous urine, fever and chills, nausea and vomiting. She presented to the emergency room where her temperature was 101.3, white blood cell count 18,000. Urinalysis showed many white cells. She was empirically treated with vancomycin and Zosyn. Patient has a history of myelofibrosis. She is on prophylactic antibiotic therapy with Bactrim 3 times a week. She has been maintained on Jakafi. She denies any suprapubic or flank pain. Denies recent urinary tract infection or history of resistant organisms. She is followed at [facility]. PAST MEDICAL HISTORY: As above. ALLERGIES: No known allergies. MEDICATIONS: Bactrim prophylaxis and Jakafi. SOCIAL HISTORY: Patient lives in the [place], lives at home with family members, nonsmoker / nondrinker. LABORATORY DATA: White count on admission 18,000 with left shift, hematocrit 24.6, platelet count 65. BUN 15, creatinine 0.8. Urinalysis greater than 100 white cells. Blood and urine cultures are pending. PHYSICAL EXAMINATION: General: She is a thin female. She is chronically ill-appearing, in no acute distress, not acutely toxic. Vital signs: Temperature 98.6, maximum temperature 101.3, blood pressure 101/50, pulse 86 and regular, respirations 18 per minute. HEENT: Sclerae anicteric. Heart: Heart sounds S1, S2. Lungs: Clear. Abdomen: Soft. No tenderness elicited. No suprapubic or flank tenderness. Extremities: Negative for edema. IMPRESSION: 1. Urinary tract infection / possible sepsis secondary to genitourinary source. 2. Myelofibrosis. Await blood and urine culture results, empiric antibiotic coverage with ceftriaxone 2 g IV piggyback daily, IV fluid hydration. Further recommendations pending cultures. Will follow. Thank you for the kind referral. ANTOINETTE GIFFORD M.D. [id number]
--- NOTE | 2018-06-02 16:34 | CONSULT ---
Consult Consult Specialty:: heme/onc Reason for Consultation:: MF mgmt - History of Present Illness Chief Complaint: weakness History of Present Illness: 57 yof dxd w José Miguel 2 pos PV 2010 and maintained on phleb till 12/18 when ruxolitinib instituted in setting of prog to MF w enlarging spleen, loss of appetite. Started a [id number] inh on study 10/23. She continues on ruxo/study drug and bactrim ppx and notes prog weakness. She has been ref for consideration of allo BMT. Folld by Dr Aleena Treviño at [facility]. Has been unable to keep recent appts in setting of prog weakness, ER visits. c/o inc ur freq and found to have uti/bacteremia. 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) - History Source History Provided By: Patient, Medical Record - Past Medical History Heme/Onc: Yes: Myeloproliferative Synd Infectious Disease: Yes: Other (breast abscess) - Alcohol/Substance Use Hx Alcohol Use: No - Smoking History Smoking history: Never smoked Have you smoked in the past 12 months: No Home Medications - Allergies Allergies/Adverse Reactions: Allergies Allergy/AdvReac Type Severity Reaction Status Date / Time No Known Allergies Allergy Verified 06/01/18 18:12 - Home Medications Home Medications: Ambulatory Orders Ruxolitinib Phosphate [Jakafi] 10 mg PO BID 02/08/17 Sulfamethoxazole/Trimethoprim [Bactrim Ds -] 1 tab PO ASDIR 06/01/18 Physical Exam Vital Signs: Vital Signs Temperature 98.6 F 06/02/18 14:13 Pulse Rate 90 06/02/18 14:13 Respiratory Rate 18 06/02/18 14:13 Blood Pressure 116/67 06/02/18 14:13 O2 Sat by Pulse Oximetry (%) 100 06/02/18 14:13 Constitutional: Yes: No Distress, Cachectic Eyes: Yes: Conjunctiva Clear HENT: Yes: WNL Neck: Yes: Supple Cardiovascular: Yes: Regular Rate and Rhythm Respiratory: Yes: CTA Bilaterally Gastrointestinal: Yes: Normal Bowel Sounds, Splenomegaly, Other (NT marked SM) Edema: No Labs: CBC, BMP 06/02/18 07:10 06/02/18 07:10 Assessment/Plan 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 Currently taking 10 mg bid and would cut the 20 mg pill she has to approximate 5 mg bid, unless appro dose pill can be obtained. MOnitor daily cbc. Send uric acid (typically runs 6-7), LDH (typically ~1000) P smear - leukoerythroblastic w immature left-shifted forms, teardrops; possib blasts, not overwhelming above d/w pathologist, Dr Ramirez, notes: not c/w acute leuk If there should be any clin decompensation, would transfer to [facility]. Have d/w Dr Treviño and Opal Arnold
[2018-06-02] MEDS ORDERED: RUXOLITINIB PHOSPHATE 5 MG PO SCH (22:00)
[2018-06-03 09:55] LABS: ANION GAP 7 MMOL/L (8-16); BLOOD UREA NITROGEN 11 mg/dl (7-18); CALCIUM 7.8 mg/dl (8.4-10.2); CHLORIDE 103 mmol/L (98-107); CO2 23 mmol/L (22-28); CREATININE 0.6 mg/dl (0.6-1.3); GLUCOSE,RANDOM 94 mg/dl (74-106); POTASSIUM 3.9 mmol/L (3.5-5.1); SODIUM 133 mmol/L (136-145)
[2018-06-03] MEDS ORDERED: RUXOLITINIB PHOSPHATE 10 MG PO SCH (10:00)
--- NOTE | 2018-06-03 10:00 | PN ---
Physical Exam: SUBJECTIVE: Patient seen and examined. Pt reports feeling better, c/o diarrhea today, no hematochezia,denies dysuria, hematuria N/V,cp, sob, palpitations or chills,but reports persistent chronic LUQ pain. OBJECTIVE: Vital Signs Period Temp Pulse Resp BP Sys/Mcintyre Pulse Ox Last 24 Hr 98.0 F-98.6 F 74-93 18-19 112-116/58-67 97-100 GENERAL: The patient is awake, alert, and fully oriented, in no acute distress. HEAD: Normal with no signs of trauma. EYES: PERRL, extraocular movements intact, sclera anicteric, conjunctiva clear. No ptosis. ENT: Ears normal, nares patent, oropharynx clear without exudates, moist mucous membranes. NECK: Trachea midline, full range of motion, supple. LUNGS: Breath sounds equal, clear to auscultation bilaterally, no wheezes, no crackles, no accessory muscle use. HEART: Regular rate and rhythm, S1, S2 without murmur, rub or gallop. ABDOMEN: mildly distended , + tenderness LUQ, no guarding, no rebound,+splenomegaly, no masses. EXTREMITIES: 2+ pulses, warm, well-perfused, no edema. NEUROLOGICAL: Cranial nerves II through XII grossly intact. Normal speech, gait not observed. PSYCH: Normal mood, normal affect. SKIN: Warm, dry, normal turgor, no rashes or lesions noted Active Medications Generic Name Dose Route Start Last Admin Trade Name Freq PRN Reason Stop Dose Admin Ceftriaxone Sodium 2 gm in 100 mls @ 200 mls/hr 06/02/18 10:45 06/02/18 11:33 Rocephin 2gm Ivpb (Pre-Docked) IVPB 200 mls/hr DAILY TRINI Administration Protocol Lactobacillus Acidophilus 1 tab 06/03/18 10:00 Bacid - PO DAILY TRINI Multivitamins/Minerals/Vitamin C 1 tab 06/03/18 10:00 Tab-A-Vit - PO DAILY TRINI Non-Formulary Medication 1 each 06/02/18 10:00 Patient's Own Med PO DAILY TRINI Non-Formulary Medication 5 mg 06/02/18 22:00 Ruxolitinib Phosphate [Jakafi] PO BID TRINI Trimethoprim/Sulfamethoxazole 1 each 06/02/18 10:00 06/02/18 09:35 Bactrim Ds - PO 1 each MoWeFr@1000 TRINI Administration 06/01/18 18:40 Blood - Peripheral Venous Blood Culture - Preliminary Alpha Hemolytic Streptococcus 06/01/18 18:20 Urine - Urine Clean Catch Urine Culture - Preliminary Lactose Fermenting Neg Bacilli 06/01/18 18:40 Blood - Peripheral Venous Blood Culture - Preliminary NO GROWTH OBTAINED AFTER 24 HOURS, INCUBATION TO CONTINUE FOR 4 DAYS. CxR: No significant interval change or acute cardiopulmonary disease is present ASSESSMENT/PLAN: This is a 57 year old female with a past medical history of myelofibrosis with splenomegaly who presented to the ED with fever, chills, malaise, dysuria and nausea and vomiting x 3 weeks. Admitted with urosepsis. Pt reports chronic abdominal pain secondary to splenomegaly. Pt is involved in a research study for myelofibrosis and is on a research drug that is a phosphoinositide-3 kinase inhibitor. The study is at [facility] in the [place]. * Urosepsis -leukocytosis normalized -Max Tem 101.3 , afebrile now -Urine culture: positive for Lactose Fermenting Neg Bacilli -BC positive for Alpha Hemolytic Streptococcus - ID- following - S/P Vanc and Zosyn in the ED, will continue Rocephin, day#2 -will check stool for C-Diff * Hx of myelofibrosis - hemoglobin 7.9, maybe secondary to hemodilution - Rpt lab CBC improving - thrombocytopenia,oncologist Dr. Lucas recommends decreasing Jakafi to 5mg bid - oncologist following - on prophylactic Bactrim - will check Fe studies, stool OB *Malnutrition secondary to myelofibrosis -poor PO intake - nutritional consult done rec small frequent meals and Ensure -multivitamin * Diarrhea - poss due to abx - C- Diff ordered -will cont on probiotics *DVT PPX:- DC'd Heparin secondary to thrombocytopenia, will use mechanical AC only FEN - tolerating po - BMP in am - regular diet as tolerated Dispo: Pt currently requires further inpatient management of her emergent condition. Visit type - Emergency Visit Emergency Visit: Yes ED Registration Date: 06/01/18 Care time: The patient presented to the Emergency Department on the above date and was hospitalized for further evaluation of their emergent condition. - New Patient This patient is new to me today: No - Critical Care Critical Care patient: No
[2018-06-03] MEDS: LACTOBACILLUS ACIDOPHILUS 1 TABLET PO SCH (10:25)
[2018-06-03] MEDS: CEFTRIAXONE 2 GM/100 ML BAG IVPB SCH (10:25)
[2018-06-03] MEDS: MULTIVITAMINS (DAILY MVI) TABLET (FP) PO SCH (10:25)
[2018-06-03 10:32] LABS: BASO % 0.1 % (0-2.0); EOS % 0.1 % (0-4.5); HEMATOCRIT 25.9 % (32.4-45.2); HEMOGLOBIN 8.5 GM/dl (10.7-15.3); LYMPH % 29.6 % (8-40); MCH 21.9 pg (25.7-33.7); MCHC 32.8 g/dl (32.0-36.0); MEAN CELL VOLUME 66.6 fl (80-96); MEAN PLT VOLUME 8.9 fl (7.5-11.1); MONO % 55.3 % (3.8-10.2); NEUT % 14.9 % (42.8-82.8); RBC 3.88 M/mm3 (3.60-5.2); RDW 19.5 % (11.6-15.6); WHITE BLOOD COUNT 10.6 K/mm3 (4.0-10.8)
[2018-06-03 10:35] LABS: PLATELET COUNT 86 K/MM3 (134-434)
[2018-06-03] MEDS: ACETAMINOPHEN 325 MG TABLET (FP) PO PRN ×2 (12:36→18:11)
--- NOTE | 2018-06-03 19:31 | PN ---
Progress Note, Physician History of Present Illness: Awake, alert No c/o dysuria No suprapubic or flank pain Afebrile WBC WNL Urine c/s GNR BC one bottle S. mitis ? significance - Current Medication List Current Medications: Active Medications Acetaminophen (Tylenol -) 650 mg PO Q6H PRN PRN Reason: PAIN LEVEL 7 - 10 Last Admin: 06/03/18 18:11 Dose: 650 mg Ceftriaxone Sodium (Rocephin 2gm Ivpb (Pre-Docked)) 2 gm in 100 mls @ 200 mls/ hr IVPB DAILY TRINI; Protocol Last Admin: 06/03/18 10:25 Dose: 200 mls/hr Lactobacillus Acidophilus (Bacid -) 1 tab PO DAILY TRINI Last Admin: 06/03/18 10:25 Dose: 1 tab Multivitamins/Minerals/Vitamin C (Tab-A-Vit -) 1 tab PO DAILY TRINI Last Admin: 06/03/18 10:25 Dose: 1 tab Non-Formulary Medication (Patient's Own Med) 1 each PO DAILY TRINI Non-Formulary Medication (Ruxolitinib Phosphate [Jakafi]) 5 mg PO BID TRINI Trimethoprim/Sulfamethoxazole (Bactrim Ds -) 1 each PO MoWeFr@1000 TRINI Last Admin: 06/02/18 09:35 Dose: 1 each - Objective Vital Signs: Vital Signs Temperature 97.5 F L 06/03/18 14:00 Pulse Rate 79 06/03/18 14:00 Respiratory Rate 17 06/03/18 14:00 Blood Pressure 128/77 06/03/18 14:00 O2 Sat by Pulse Oximetry (%) 100 06/03/18 14:00 Constitutional: Yes: Thin Cardiovascular: Yes: Regular Rate and Rhythm, S1, S2 Respiratory: Yes: CTA Bilaterally Gastrointestinal: Yes: Normal Bowel Sounds, Soft, Hepatomegaly, Splenomegaly Edema: No Labs: CBC, BMP 06/03/18 07:45 06/03/18 07:45 INR, PTT INR 1.63 (0.82-1.09) H 06/01/18 18:40 Assessment/Plan UTI + BC ?significance Myelofibrosis Repeat BC ordered Continue ceftriaxone pending urine c/s
--- NOTE | 2018-06-03 23:23 | EKG ---
Test Reason : Blood Pressure : / mmHG Vent. Rate : 090 BPM Atrial Rate : 090 BPM P-R Int : 130 ms QRS Dur : 090 ms QT Int : 352 ms P-R-T Axes : 056 017 011 degrees QTc Int : 430 ms SINUS RHYTHM WITH PREMATURE ATRIAL COMPLEXES OTHERWISE NORMAL ECG NO PREVIOUS ECGS AVAILABLE Confirmed by CHERYL SIMS, FRANCIA ([id number]) on 06/03/2018 11:22:54 PM Referred By: DR WARD Confirmed By:FRANCIA LUNA MD
[2018-06-04 08:06] LABS: SERUM IRON SATURATION 10 % (15-55); TOTAL IRON BINDING CAPACITY 155 ug/dL (250-450); UIBC 139 ug/dL (131-425)
[2018-06-04] MEDS: LACTOBACILLUS ACIDOPHILUS 1 TABLET PO SCH (09:27)
[2018-06-04] MEDS: MULTIVITAMINS (DAILY MVI) TABLET (FP) PO SCH (09:27)
[2018-06-04] MEDS: CEFTRIAXONE 2 GM/100 ML BAG IVPB SCH (09:27)
[2018-06-04 09:39] LABS: BASO % 0.2 % (0-2.0); EOS % 0.8 % (0-4.5); HEMATOCRIT 25.1 % (32.4-45.2); HEMOGLOBIN 8.1 GM/dl (10.7-15.3); LYMPH % 28.8 % (8-40); MCH 21.3 pg (25.7-33.7); MEAN CELL VOLUME 66.4 fl (80-96); MEAN PLT VOLUME 9.2 fl (7.5-11.1); MONO % 56.4 % (3.8-10.2); NEUT % 13.8 % (42.8-82.8); PLATELET COUNT 66 K/MM3 (134-434); RBC 3.79 M/mm3 (3.60-5.2); RDW 19.4 % (11.6-15.6); WHITE BLOOD COUNT 8.5 K/mm3 (4.0-10.8)
[2018-06-04 09:48] LABS: ANION GAP 9 MMOL/L (8-16); BLOOD UREA NITROGEN 10 mg/dl (7-18); CALCIUM 8.2 mg/dl (8.4-10.2); CHLORIDE 101 mmol/L (98-107); CO2 23 mmol/L (22-28); CREATININE 0.6 mg/dl (0.6-1.3); GLUCOSE,RANDOM 89 mg/dl (74-106); POTASSIUM 3.7 mmol/L (3.5-5.1); SODIUM 133 mmol/L (136-145)
--- NOTE | 2018-06-04 10:27 | PN ---
<Sondra Arce - Last Filed: 06/04/18 12:13> Physical Exam: SUBJECTIVE: Patient seen and examined, Pt reports abdominal pain controlled with Tylenol,diarrhea x3 today( watery stool), no hematochezia, appetite remains poor, denies urinary symptoms. OBJECTIVE: Vital Signs Period Temp Pulse Resp BP Sys/Mcintyre Pulse Ox Last 24 Hr 97.5 F-98.3 F 79-107 17-19 113-132/59-77 98-100 GENERAL: The patient is awake, alert, and fully oriented, in no acute distress. HEAD: Normal with no signs of trauma. EYES: PERRL, extraocular movements intact, sclera anicteric, conjunctiva clear. No ptosis. ENT: Ears normal, nares patent, oropharynx clear without exudates, moist mucous membranes. NECK: Trachea midline, full range of motion, supple. LUNGS: Breath sounds equal, clear to auscultation bilaterally, no wheezes, no crackles, no accessory muscle use. HEART: Regular rate and rhythm, S1, S2 without murmur, rub or gallop. ABDOMEN: distended, normoactive bowel sounds, no guarding, no rebound,+ splenomegaly, no masses. EXTREMITIES: 2+ pulses, warm, well-perfused, no edema. NEUROLOGICAL: Cranial nerves II through XII grossly intact. Normal speech, gait not observed. PSYCH: Normal mood, normal affect. SKIN: Warm, dry, normal turgor, no rashes or lesions noted Laboratory Results - last 24 hr 06/03/18 06/03/18 06/03/18 07:45 07:45 07:45 WBC 10.6 RBC 3.88 Hgb 8.5 L Hct 25.9 L MCV 66.6 L MCH 21.9 L MCHC 32.8 RDW 19.5 H Plt Count 86 L MPV 8.9 Absolute Neuts (auto) 1.6 Neutrophils % 14.9 L Lymphocytes % 29.6 Monocytes % 55.3 H Eosinophils % 0.1 Basophils % 0.1 Sodium Potassium Chloride Carbon Dioxide Anion Gap BUN Creatinine Creat Clearance w eGFR Random Glucose Calcium Iron 16 L TIBC 155 L Iron Saturation 10 L Ferritin 794.0 H Stool Occult Blood 06/03/18 06/04/18 06/04/18 14:16 07:00 07:00 WBC 8.5 RBC 3.79 Hgb 8.1 L Hct 25.1 L MCV 66.4 L MCH 21.3 L MCHC 32.0 RDW 19.4 H Plt Count 66 L MPV 9.2 Absolute Neuts (auto) 1.2 Neutrophils % 13.8 L Lymphocytes % 28.8 Monocytes % 56.4 H Eosinophils % 0.8 Basophils % 0.2 Sodium 133 L Potassium 3.7 Chloride 101 Carbon Dioxide 23 Anion Gap 9 BUN 10 Creatinine 0.6 Creat Clearance w eGFR > 60 Random Glucose 89 Calcium 8.2 L Iron TIBC Iron Saturation Ferritin Stool Occult Blood Negative Active Medications Generic Name Dose Route Start Last Admin Trade Name Freq PRN Reason Stop Dose Admin Acetaminophen 650 mg 06/03/18 11:59 06/03/18 18:11 Tylenol - PO 650 mg Q6H PRN Administration PAIN LEVEL 7 - 10 Ceftriaxone Sodium 2 gm in 100 mls @ 200 mls/hr 06/02/18 10:45 06/04/18 09:27 Rocephin 2gm Ivpb (Pre-Docked) IVPB 200 mls/hr DAILY TRINI Administration Protocol Lactobacillus Acidophilus 1 tab 06/03/18 10:00 06/04/18 09:27 Bacid - PO 1 tab DAILY TRINI Administration Multivitamins/Minerals/Vitamin C 1 tab 06/03/18 10:00 06/04/18 09:27 Tab-A-Vit - PO 1 tab DAILY TRINI Administration Non-Formulary Medication 1 each 06/02/18 10:00 Patient's Own Med PO DAILY TRINI Non-Formulary Medication 5 mg 06/02/18 22:00 Ruxolitinib Phosphate [Jakafi] PO BID TRINI Trimethoprim/Sulfamethoxazole 1 each 06/02/18 10:00 06/02/18 09:35 Bactrim Ds - PO 1 each MoWeFr@1000 TRINI Administration 06/01/18 18:40 Blood - Peripheral Venous Blood Culture - Preliminary Alpha Hemolytic Streptococcus 06/01/18 18:20 Urine - Urine Clean Catch Urine Culture - Preliminary Lactose Fermenting Neg Bacilli 06/01/18 18:40 Blood - Peripheral Venous Blood Culture - Preliminary NO GROWTH OBTAINED AFTER 24 HOURS, INCUBATION TO CONTINUE FOR 4 DAYS. CxR: No significant interval change or acute cardiopulmonary disease is present ASSESSMENT/PLAN: This is a 57 year old female with a past medical history of myelofibrosis with splenomegaly who presented to the ED with fever, chills, malaise, dysuria and nausea and vomiting x 3 weeks. Admitted with urosepsis. Pt reports chronic abdominal pain secondary to splenomegaly. Pt is involved in a research study for myelofibrosis and is on a research drug that is a phosphoinositide-3 kinase inhibitor. The study is at [facility] in the [place]. * Urosepsis -leukocytosis normalized -Max Tem 101.3 , afebrile now -Urine culture: positive for Lactose Fermenting Neg Bacilli- will f/u on final report -BC positive for Alpha Hemolytic Streptococcus - Rpt BC pending - ID- following - S/P Vanc and Zosyn in the ED, will continue Rocephin, day#3 - Echo pending * Hx of myelofibrosis - hemoglobin 7.9, maybe secondary to hemodilution - Rpt lab CBC H/H 8.1/25.1- asymptomatic -Fe studies,low fe studies but Ferritin elevated stool OB neg - thrombocytopenia,oncologist Dr. Lucas recommends decreasing Jakafi to 5mg bid - PLT 105>65>86>66 - oncologist following - on prophylactic Bactrim *Malnutrition secondary to myelofibrosis -poor PO intake - nutritional consult done rec small frequent meals and Ensure -multivitamin * Diarrhea - poss due to abx - stool for C-Diff pending -will cont on probiotics - IV hydration *DVT PPX:- DC'd Heparin secondary to thrombocytopenia, will use mechanical AC only FEN - tolerating po - BMP in am - regular diet as tolerated Dispo: Pt currently requires further inpatient management of her emergent condition. Visit type - Emergency Visit Emergency Visit: Yes ED Registration Date: 06/01/18 Care time: The patient presented to the Emergency Department on the above date and was hospitalized for further evaluation of their emergent condition. - New Patient This patient is new to me today: Yes Date on this admission: 06/04/18 - Critical Care Critical Care patient: No <Opal Arnold - Last Filed: 06/05/18 12:55> Physical Exam: SUBJECTIVE: Patient seen and examined OBJECTIVE: Vital Signs Period Temp Pulse Resp BP Sys/Mcintyre Pulse Ox Last 24 Hr 98.2 F-98.7 F 86-95 17-18 115-122/63-72 95-100 GENERAL: The patient is awake, alert, and fully oriented, in no acute distress. HEAD: Normal with no signs of trauma. EYES: PERRL, extraocular movements intact, sclera anicteric, conjunctiva clear. No ptosis. ENT: Ears normal, nares patent, oropharynx clear without exudates, moist mucous membranes. NECK: Trachea midline, full range of motion, supple. LUNGS: Breath sounds equal, clear to auscultation bilaterally, no wheezes, no crackles, no accessory muscle use. HEART: Regular rate and rhythm, S1, S2 without murmur, rub or gallop. ABDOMEN: Soft, nontender, nondistended, normoactive bowel sounds, no guarding, no rebound, no hepatosplenomegaly, no masses. EXTREMITIES: 2+ pulses, warm, well-perfused, no edema. NEUROLOGICAL: Cranial nerves II through XII grossly intact. Normal speech, gait not observed. PSYCH: Normal mood, normal affect. SKIN: Warm, dry, normal turgor, no rashes or lesions noted Laboratory Results - last 24 hr 06/05/18 06/05/18 07:00 07:00 WBC 7.9 RBC 3.64 Hgb 7.7 L Hct 24.1 L MCV 66.3 L MCH 21.2 L MCHC 31.9 L RDW 19.3 H Plt Count 69 L MPV 8.4 Absolute Neuts (auto) 0.9 Neutrophils % No Result Required. Neutrophils % (Manual) 14.0 L Band Neutrophils % 1.0 Lymphocytes % No Result Required. Lymphocytes % (Manual) 34.0 Monocytes % (Manual) 36 H* Eosinophils % (Manual) 2.0 Basophils % (Manual) 3.0 H Myelocytes % (Man) 3 H Nucleated RBC % 10 H Metamyelocytes 3 H Smudge Cells Moderate Hypochromia 2+ Platelet Estimate Decreased Platelet Comment Moderate large plts Polychromasia 1+ Anisocytosis 2+ Microcytosis 2+ Tear Drop Cells 2+ Ovalocytes 2+ Sodium 133 L Potassium 3.3 L Chloride 98 Carbon Dioxide 24 Anion Gap 11 BUN 9 Creatinine 0.7 Creat Clearance w eGFR > 60 Random Glucose 89 Calcium 7.9 L Active Medications Generic Name Dose Route Start Last Admin Trade Name Freq PRN Reason Stop Dose Admin Acetaminophen 650 mg 06/03/18 11:59 06/03/18 18:11 Tylenol - PO 650 mg Q6H PRN Administration PAIN LEVEL 7 - 10 Ceftriaxone Sodium 2 gm in 100 mls @ 200 mls/hr 06/02/18 10:45 06/05/18 10:18 Rocephin 2gm Ivpb (Pre-Docked) IVPB 200 mls/hr DAILY TRINI Administration Protocol Lactobacillus Acidophilus 1 tab 06/03/18 10:00 06/05/18 10:18 Bacid - PO 1 tab DAILY TRINI Administration Multivitamins/Minerals/Vitamin C 1 tab 06/03/18 10:00 06/05/18 10:18 Tab-A-Vit - PO 1 tab DAILY TRINI Administration Non-Formulary Medication 1 each 06/02/18 10:00 Patient's Own Med PO DAILY [facility] Non-Formulary Medication 5 mg 06/02/18 22:00 Ruxolitinib Phosphate [Jakafi] PO BID [facility] Potassium Chloride 40 meq 06/05/18 12:44 K-Dur - PO 06/05/18 12:45 ONCE ONE Trimethoprim/Sulfamethoxazole 1 each 06/02/18 10:00 06/05/18 10:18 Bactrim Ds - PO 1 each MoWeFr@1000 [facility] Administration ASSESSMENT/PLAN:
[2018-06-04] MEDS ORDERED: DEXTROSE 5%-NORMAL SALINE 1,000 ML IV SCH (11:00)
--- NOTE | 2018-06-05 08:25 | PN ---
Physical Exam: SUBJECTIVE: Patient seen and examined, sitting in bedside recliner, daughter at bedside, patient reports feeling much better, denies any tactile fever OBJECTIVE:Patient is a 57-year-old female with a past medical history of myelofibrosis With significant splenomegaly, Patient is currently being followed by [facility] oncology, Dr. Aleena Treviño at [facility] , She is currently involved in a research study for myelofibrosis and is on a research drug that is a phosphoinositide-3 kinase inhibitor The patient was admitted to the medical surgical unit for sepsis secondary to urinary tract infection. Vital Signs Period Temp Pulse Resp BP Sys/Mcintyre Pulse Ox Last 24 Hr 98.1 F-98.7 F 86-96 17-18 115-126/63-72 95-100 GENERAL: The patient is awake, alert, and fully oriented, The patient appears cachectic HEAD: Temporal wasting with no signs of trauma. EYES: PERRL, extraocular movements intact, sclera anicteric, conjunctiva clear. No ptosis. ENT: Ears normal, nares patent, oropharynx clear without exudates, moist mucous membranes. NECK: Trachea midline, full range of motion, supple. LUNGS: Breath sounds equal, clear to auscultation bilaterally, no wheezes, no crackles, no accessory muscle use. HEART: Regular rate and rhythm, S1, S2 without murmur, rub or gallop. ABDOMEN: Soft, nontender, nondistended, normoactive bowel sounds, no guarding, no rebound, + splenomegaly, no masses. EXTREMITIES: 2+ pulses, warm, well-perfused, no edema. NEUROLOGICAL: Cranial nerves II through XII grossly intact. Normal speech, gait not observed. PSYCH: Normal mood, normal affect. SKIN: Warm, dry, normal turgor, no rashes or lesions noted Laboratory Results - last 24 hr 06/04/18 06/04/18 07:00 07:00 WBC 8.5 RBC 3.79 Hgb 8.1 L Hct 25.1 L MCV 66.4 L MCH 21.3 L MCHC 32.0 RDW 19.4 H Plt Count 66 L MPV 9.2 Absolute Neuts (auto) 1.2 Neutrophils % 13.8 L Lymphocytes % 28.8 Monocytes % 56.4 H Eosinophils % 0.8 Basophils % 0.2 Sodium 133 L Potassium 3.7 Chloride 101 Carbon Dioxide 23 Anion Gap 9 BUN 10 Creatinine 0.6 Creat Clearance w eGFR > 60 Random Glucose 89 Calcium 8.2 L Active Medications Generic Name Dose Route Start Last Admin Trade Name Jae PRN Reason Stop Dose Admin Acetaminophen 650 mg 06/03/18 11:59 06/03/18 18:11 Tylenol - PO 650 mg Q6H PRN Administration PAIN LEVEL 7 - 10 Ceftriaxone Sodium 2 gm in 100 mls @ 200 mls/hr 06/02/18 10:45 06/04/18 09:27 Rocephin 2gm Ivpb (Pre-Docked) IVPB 200 mls/hr DAILY TRINI Administration Protocol Dextrose/Sodium Chloride 1,000 mls @ 50 mls/hr 06/04/18 11:00 06/04/18 11:00 D5-Ns - IV 50 mls/hr ASDIR TRINI Administration Lactobacillus Acidophilus 1 tab 06/03/18 10:00 06/04/18 09:27 Bacid - PO 1 tab DAILY TRINI Administration Multivitamins/Minerals/Vitamin C 1 tab 06/03/18 10:00 06/04/18 09:27 Tab-A-Vit - PO 1 tab DAILY TRINI Administration Non-Formulary Medication 1 each 06/02/18 10:00 Patient's Own Med PO DAILY TRINI Non-Formulary Medication 5 mg 06/02/18 22:00 Ruxolitinib Phosphate [Jakafi] PO BID TRINI Trimethoprim/Sulfamethoxazole 1 each 06/02/18 10:00 06/02/18 09:35 Bactrim Ds - PO 1 each MoWeFr@1000 TRINI Administration Microbiology 06/04/18 07:00 Blood - Peripheral Venous Blood Culture - Preliminary NO GROWTH OBTAINED AFTER 24 HOURS, INCUBATION TO CONTINUE FOR 4 DAYS. 06/04/18 07:00 Blood - Peripheral Venous Blood Culture - Preliminary NO GROWTH OBTAINED AFTER 24 HOURS, INCUBATION TO CONTINUE FOR 4 DAYS. 06/01/18 18:40 Blood - Peripheral Venous Blood Culture - Preliminary NO GROWTH OBTAINED AFTER 72 HOURS, INCUBATION TO CONTINUE FOR 2 DAYS. 06/03/18 14:16 Stool Clostridium difficile Antigen (RODRIGO) - Final 06/03/18 14:16 Stool Clostridium difficile Toxin Assay - Final 06/01/18 18:40 Blood - Peripheral Venous Blood Culture - Final Streptococcus Mitis 06/01/18 18:20 Urine - Urine Clean Catch Urine Culture - Final Escherichia Coli ASSESSMENT/PLAN: 1) ID sepsis -resolved, secondary to UTI, No leukocytosis, patient is afebrile. -1 blood culture positive for Streptococcus mitis, ? Contaminant, repeat blood cultures negative - Urine culture notable for ecoli, rocephin day 4 - pending echo - Dr Conklin, ID consulted 2) heme/onc Hx of myelofibrosis microcytic anemia thrombocytopenia, - hemoglobin 8.1, maybe secondary to hemodilution, ivf d/c - stool OB neg - on prophylactic Bactrim -Jakafi to 5mg bid-->as per onc Dr Lucas - oncologist following 3) Malnutrition secondary to myelofibrosis -poor PO intake - nutritional consult done rec small frequent meals and Ensure -multivitamin *DVT PPX:- DC'd Heparin secondary to thrombocytopenia, will use mechanical AC only FEN - tolerating po - BMP in am - regular diet as tolerated Dispo: Pt currently requires further inpatient management of her emergent condition Visit type - Emergency Visit Emergency Visit: Yes ED Registration Date: 06/01/18 Care time: The patient presented to the Emergency Department on the above date and was hospitalized for further evaluation of their emergent condition. - New Patient This patient is new to me today: No - Critical Care Critical Care patient: No - Discharge Referral Referred to [facility] Med P.C.: No
[2018-06-05 08:58] LABS: HEMOGLOBIN 7.7 GM/dl (10.7-15.3); RBC 3.64 M/mm3 (3.60-5.2); WHITE BLOOD COUNT 7.9 K/mm3 (4.0-10.8)
[2018-06-05 08:59] LABS: ADD RBC MORPHOLOGY YES; HEMATOCRIT 24.1 % (32.4-45.2); MCH 21.2 pg (25.7-33.7); MCHC 31.9 g/dl (32.0-36.0); MEAN CELL VOLUME 66.3 fl (80-96); MEAN PLT VOLUME 8.4 fl (7.5-11.1); PLATELET COUNT 69 K/MM3 (134-434); RDW 19.3 % (11.6-15.6)
[2018-06-05 09:11] LABS: ANION GAP 11 MMOL/L (8-16); BLOOD UREA NITROGEN 9 mg/dl (7-18); CALCIUM 7.9 mg/dl (8.4-10.2); CHLORIDE 98 mmol/L (98-107); CO2 24 mmol/L (22-28); CREATININE 0.7 mg/dl (0.6-1.3); GLUCOSE,RANDOM 89 mg/dl (74-106); POTASSIUM 3.3 mmol/L (3.5-5.1); SODIUM 133 mmol/L (136-145)
--- NOTE | 2018-06-05 09:44 | PN ---
Progress Note, Physician History of Present Illness: Awake, alert No complaints No c/o dysuria No suprapubic or flank pain Afebrile WBC WNL Urine c/s E coli BC one bottle S. mitis ? significance Repeat BC (-) - Current Medication List Current Medications: Active Medications Acetaminophen (Tylenol -) 650 mg PO Q6H PRN PRN Reason: PAIN LEVEL 7 - 10 Last Admin: 06/03/18 18:11 Dose: 650 mg Ceftriaxone Sodium (Rocephin 2gm Ivpb (Pre-Docked)) 2 gm in 100 mls @ 200 mls/ hr IVPB DAILY TRINI; Protocol Last Admin: 06/04/18 09:27 Dose: 200 mls/hr Lactobacillus Acidophilus (Bacid -) 1 tab PO DAILY TRINI Last Admin: 06/04/18 09:27 Dose: 1 tab Multivitamins/Minerals/Vitamin C (Tab-A-Vit -) 1 tab PO DAILY TRINI Last Admin: 06/04/18 09:27 Dose: 1 tab Non-Formulary Medication (Patient's Own Med) 1 each PO DAILY TRINI Non-Formulary Medication (Ruxolitinib Phosphate [Jakafi]) 5 mg PO BID TRINI Trimethoprim/Sulfamethoxazole (Bactrim Ds -) 1 each PO MoWeFr@1000 TRINI Last Admin: 06/02/18 09:35 Dose: 1 each - Objective Vital Signs: Vital Signs Temperature 98.6 F 06/05/18 06:00 Pulse Rate 95 H 06/05/18 06:00 Respiratory Rate 18 06/05/18 08:14 Blood Pressure 115/71 06/05/18 06:00 O2 Sat by Pulse Oximetry (%) 95 06/05/18 08:14 Constitutional: Yes: No Distress Eyes: Yes: Conjunctiva Clear Cardiovascular: Yes: Regular Rate and Rhythm, S1, S2 Respiratory: Yes: CTA Bilaterally Gastrointestinal: Yes: Normal Bowel Sounds, Soft, Hepatomegaly, Splenomegaly. No: Tenderness Edema: No Labs: CBC, BMP 06/05/18 07:00 06/05/18 07:00 INR, PTT INR 1.63 (0.82-1.09) H 06/01/18 18:40 Assessment/Plan UTI E coli + BC ?significance Probable contaminant Repeat BC (-) Myelofibrosis Check echo today R/O vegetations If negative, substitute Keflex 500mg po bid x 7d
[2018-06-05] MEDS: MULTIVITAMINS (DAILY MVI) TABLET (FP) PO SCH (10:18)
[2018-06-05] MEDS: LACTOBACILLUS ACIDOPHILUS 1 TABLET PO SCH (10:18)
[2018-06-05] MEDS: SULFAMETHOXAZOLE/TRIMETHOPRIM 800MG/160MG D.S. TABLET PO SCH (10:18)
[2018-06-05] MEDS: CEFTRIAXONE 2 GM/100 ML BAG IVPB SCH (10:18)
[2018-06-05 11:05] LABS: ANISOCYTOSIS 2+; SMUDGE CELLS MODERATE
[2018-06-05 11:06] LABS: OVALOCYTE 2+; PLATELET ESTIMATE DECREASED; TEAR DROP CELLS 2+
--- NOTE | 2018-06-05 13:15 | PN ---
Progress Note (short form) - Note Progress Note: Ave reports feeling better. c/o n sweats and feeling of splenic enlargement when off study drug and w dec in jakafi dosing For echo now in view of 1 BC w s mitis PE NAD lungs-CTA CVS-reg S1S2 abd- SM, NT ext-no edema Imp: MF, UTI, +BC -> contam? appreciate ID mgmt await results of echo If plan to d/c home, resume ruxolitinib 10 mg bid; hold study drug till pt's appt w Dr Treviño: this Wed at 9AM. Pt informed and d/w team
[2018-06-05] MEDS ORDERED: MAGNESIUM SULF 50% (8.12 MEQ/2 ML-1 GM VIAL) IVPB ONE (13:19)
[2018-06-05] MEDS ORDERED: MAGNESIUM 1GM/D5W - 1 GM/100 ML IVPB IVPB ONE (13:30)
[2018-06-05] MEDS ORDERED: POTASSIUM CHLORIDE TABS 20 MEQ TABLET.ER (FP) PO ONE (13:30)
[2018-06-05 14:25] VITALS: BP 114/71; PULSE 96; TEMP 98.2
--- NOTE | 2018-06-05 14:55 | ECHO ---
Name: JOSE HOAGROS Exam:Adult Echocardiogram Study Date: 06/05/2018 01:45 PM Age: 57 yrs Reason For Study: +BC Height: 65 in Weight: 119 lb BSA: 1.6 m2 MMode/2D Measurements & Calculations IVSd: 1.2 cm Ao root diam: 2.6 cm LVIDd: 3.8 cm LA dimension: 3.1 cm LVIDs: 2.4 cm LVPWd: 0.89 cm EDV(Teich): 62.5 ml ESV(Teich): 19.8 ml Doppler Measurements & Calculations MV E max kylah: 57.6 cm/sec MV A max kylah: 87.6 cm/sec MV dec slope: 522.2 cm/sec2 MV E/A: 0.66 PI end-d kylah: 113.8 cm/sec Procedure A complete two-dimensional transthoracic echocardiogram was performed (2D, M-mode, Doppler and color flow Doppler). Left Ventricle The left ventricle is normal in size. Left ventricular systolic function is normal. E/A reversal with TDI revealing impaired relaxation and normal filling pressure (E/E' 9). No regional wall motion abnormali ties noted. Right Ventricle The right ventricle is normal size. The right ventricular systolic function is normal. Atria The left atrial size is normal. Right atrial size is normal. Mitral Valve The mitral valve is normal in structure and function. There is mild mitral regurgitation. Tricuspid Valve The tricuspid valve is normal in structure and function. There is mild tricuspid regurgitation. Aortic Valve The aortic valve is normal in structure and function. Mild aortic regurgitation. Pulmonic Valve The pulmonic valve is not well visualized. Trace pulmonic valvular regurgitation. Great Vessels The aortic root is normal size. Pericardium/Pleura There is no pericardial effusion. Interpretation Summary The left ventricle is normal in size. Left ventricular systolic function is normal. No regional wall motion abnormalities noted. E/A reversal with TDI revealing impaired relaxation and normal filling pressure (E/E' 9) The right ventricular systolic function is normal. The left atrial size is normal. Right atrial size is normal. There is mild mitral regurgitation. There is mild tricuspid regurgitation. Mild aortic regurgitation. Trace pulmonic valvular regurgitation. There is no pericardial effusion. Previous study is not available for comparison Jaun Ly MD 06/05/2018 02:54 PM
--- NOTE | 2018-06-06 07:50 | DS ---
Physical Exam: SUBJECTIVE: Patient seen and examined, patient is sitting in bedside chair, daughter at bedside, reports feeling much improved, denies any chest pain or shortness of breath, tolerating diet, reports more energy OBJECTIVE:This is a 57 year old female with a past medical history of myelofibrosis with splenomegaly who presented to the ED with fever, chills, malaise today, dysuria since Tuesday and nausea and vomiting x 3 weeks. Pt reports chronic abdominal pain secondary to splenomegaly. Pt is involved in a research study for myelofibrosis and is on a research drug that is a phosphoinositide-3 kinase inhibitor. The study is at [facility] in the [place]. ER course was notable for: (1) WBC 18.0 (2) U/A c/w UTI (3) Lactic acid 1.2 Vital Signs Period Temp Pulse Resp BP Sys/Mcintyre Pulse Ox Last 24 Hr 98.2 F 96 16-18 114/71 95-100 PHYSICAL EXAM GENERAL: The patient is awake, alert, and fully oriented, The patient appears cachectic HEAD: Temporal wasting with no signs of trauma. EYES: PERRL, extraocular movements intact, sclera anicteric, conjunctiva clear. No ptosis. ENT: Ears normal, nares patent, oropharynx clear without exudates, moist mucous membranes. NECK: Trachea midline, full range of motion, supple. LUNGS: Breath sounds equal, clear to auscultation bilaterally, no wheezes, no crackles, no accessory muscle use. HEART: Regular rate and rhythm, S1, S2 without murmur, rub or gallop. ABDOMEN: Soft, nontender, nondistended, normoactive bowel sounds, no guarding, no rebound, + splenomegaly, no masses. EXTREMITIES: 2+ pulses, warm, well-perfused, no edema. NEUROLOGICAL: Cranial nerves II through XII grossly intact. Normal speech, gait not observed. PSYCH: Normal mood, normal affect. SKIN: Warm, dry, normal turgor, no rashes or lesions noted LABS Laboratory Results - last 24 hr 06/05/18 06/05/18 06/05/18 07:00 07:00 12:51 WBC 7.9 RBC 3.64 Hgb 7.7 L Hct 24.1 L MCV 66.3 L MCH 21.2 L MCHC 31.9 L RDW 19.3 H Plt Count 69 L MPV 8.4 Absolute Neuts (auto) 0.9 Neutrophils % No Result Required. Neutrophils % (Manual) 14.0 L Band Neutrophils % 1.0 Lymphocytes % No Result Required. Lymphocytes % (Manual) 34.0 Monocytes % (Manual) 36 H* Eosinophils % (Manual) 2.0 Basophils % (Manual) 3.0 H Myelocytes % (Man) 3 H Nucleated RBC % 10 H Metamyelocytes 3 H Smudge Cells Moderate Hypochromia 2+ Platelet Estimate Decreased Platelet Comment Moderate large plts Polychromasia 1+ Anisocytosis 2+ Microcytosis 2+ Tear Drop Cells 2+ Ovalocytes 2+ Sodium 133 L Potassium 3.3 L Chloride 98 Carbon Dioxide 24 Anion Gap 11 BUN 9 Creatinine 0.7 Creat Clearance w eGFR > 60 Random Glucose 89 Calcium 7.9 L Magnesium 1.8 Microbiology 06/01/18 18:40 Blood - Peripheral Venous Blood Culture - Preliminary NO GROWTH OBTAINED AFTER 96 HOURS, INCUBATION TO CONTINUE FOR 1 DAYS. 06/04/18 07:00 Blood - Peripheral Venous Blood Culture - Preliminary NO GROWTH OBTAINED AFTER 24 HOURS, INCUBATION TO CONTINUE FOR 4 DAYS. 06/04/18 07:00 Blood - Peripheral Venous Blood Culture - Preliminary NO GROWTH OBTAINED AFTER 24 HOURS, INCUBATION TO CONTINUE FOR 4 DAYS. 06/03/18 14:16 Stool Clostridium difficile Antigen (RODRIGO) - Final 06/03/18 14:16 Stool Clostridium difficile Toxin Assay - Final 06/01/18 18:40 Blood - Peripheral Venous Blood Culture - Final Streptococcus Mitis 06/01/18 18:20 Urine - Urine Clean Catch Urine Culture - Final Escherichia Coli IMAGING chest xray: no infilitrates no effusions noted echo: lv wnl, mild mr, mild tr HOSPITAL COURSE: 1)sepsis -resolved, secondary to UTI, No leukocytosis, patient is afebrile. -1 blood culture positive for Streptococcus mitis, likely contaminant, repeat blood cultures negative - Urine culture notable for ecoli, rocephin day 5 then transitioned to keflex - echo noted as above - Dr Conklin, ID consulted and followed 2) heme/onc Hx of myelofibrosis microcytic anemia thrombocytopenia, - hemoglobin 7.7, pt did receive IV fluid, hgb maybe secondary to hemodilution, patient is asymptomatic. - stool OB neg - on prophylactic Bactrim -Jakafi to 5mg bid-->as per onc Dr Lucas - oncologist consulted and followed 3) Malnutrition secondary to myelofibrosis -poor PO intake - nutritional consult done rec small frequent meals and Ensure -multivitamin Date of Admission:06/01/18 Date of Discharge: 06/06/18 Minutes to complete discharge: 45 Discharge Summary Reason For Visit: BURNING ON URINATION Condition: Improved - Instructions Diet, Activity, Other Instructions: you were admitted to the hospital for sepsis due to a urinary tract infection and you were treated with IV antibiotics continue keflex (antibiotics) twice a day for 7 days you have a scheduled follow up appointment with your oncologist, Dr Treviño on June 07, please keep follow up appointment restart your jakafi at 10mg twice a day (home dose) please follow up with your oncologist in regards to re-starting the research drug if any new or persistent symptoms develop please return to the emergency department Referrals: Rell Treviño MD [Non Staff, Medical] - 06/07/18 9:00 am Disposition: HOME - Home Medications Comprehensive Discharge Medication List: Ambulatory Orders Ruxolitinib Phosphate [Jakafi] 10 mg PO BID 02/08/17 Sulfamethoxazole/Trimethoprim [Bactrim DS -] 1 tab PO ASDIR 06/01/18 Acetaminophen [Tylenol .Regular Strength -] 650 mg PO Q6H PRN tablet 06/05/18 Cephalexin Monohydrate [Keflex -] 500 mg PO BID #14 capsule 06/05/18 Lactobacillus Acidophilus [Bacid -] 1 tab PO DAILY #30 tab 06/05/18 Multivitamins [Multivit (RH Formulary)] 1 tab PO DAILY #30 tab 06/05/18 Patient's Own Medication [Patient's Own Med (Nf) -] 1 each PO DAILY med This patient is new to me today: No Emergency Visit: Yes ED Registration Date: 06/01/18 Care time: The patient presented to the Emergency Department on the above date and was hospitalized for further evaluation of their emergent condition. Critical Care patient: No - Discharge Referral Referred to [facility] No
== END 2018-06-05 15:53 | disposition home or self-care (01) | DRG 720 ==
LOC: FER 18:11 → FM/S 20:44 → UNDOADMIN 20:44 → FM/S 06-03 13:01
PROVIDERS: ADMIT Internal Medicine; ATTEND Nurse Practitioner Family
DX: A41.9 Sepsis, unspecified organism (principal); N39.0 Urinary tract infection, site not specified; D75.81 Myelofibrosis; R16.1 Splenomegaly, not elsewhere classified; D69.6 Thrombocytopenia, unspecified; D50.9 Iron deficiency anemia, unspecified; E46 Unspecified protein-calorie malnutrition; Z68.1 Body mass index [BMI] 19.9 or less, adult; B96.20 Unspecified Escherichia coli [E. coli] as the cause of diseases classified elsewhere; R19.7 Diarrhea, unspecified; R64 Cachexia
CPT/HCPCS: 36415; 71045-TC-FY; 80048; 80053; 81003; 81015; 82272; 82728; 82803; 83540; 83550; 83605; 83735; 84100; 84484; 85025; 85610; 85730; 86850; 86900; 86901; 87040; 87086; 87186; 87324; 87449; 93005; 93306-TC; 99285-25; J0131; J1644